=== PATIENT | female | born 1955 | race Caucasian/White ===

== ENCOUNTER 2017-08-31 14:53 | Outpatient (CLI) | payer BC | END 2017-08-31 14:54 | disposition home or self-care (01) | LOC: BICRAD 14:53 | PROVIDERS: ATTEND Internal Medicine | DX: R19.00 Intra-abdominal and pelvic swelling, mass and lump, unspecified site (principal) | CPT/HCPCS: 74018 ==

== ENCOUNTER 2022-01-12 10:40 | Outpatient (CLI) | payer BC | END 2022-01-12 10:41 | disposition home or self-care (01) | LOC: BICMAMMO 10:40 | PROVIDERS: ATTEND Internal Medicine | DX: Z12.31 Encounter for screening mammogram for malignant neoplasm of breast (principal); M85.852 Other specified disorders of bone density and structure, left thigh; M81.0 Age-related osteoporosis without current pathological fracture; Z98.890 Other specified postprocedural states; Z91.89 Other specified personal risk factors, not elsewhere classified; Z80.3 Family history of malignant neoplasm of breast | CPT/HCPCS: 77063; 77067; 77080 ==

== ENCOUNTER 2022-06-07 08:08 | Outpatient (CLI) | payer BC | END 2022-06-07 08:09 | disposition home or self-care (01) | LOC: BICMAMMO 08:08 | PROVIDERS: ATTEND Internal Medicine | DX: N64.4 Mastodynia (principal) | CPT/HCPCS: G0279 ==

== ENCOUNTER 2023-01-17 11:02 | Inpatient (IN) | payer MEDICARE, BC ==
[~2023-01-17 11:02] MED LIST: Iopamidol-370 76% 500 ML MDV (1 ML CHARGE) ONE
[2023-01-17 12:39] LABS: #Basophils 0.1 thou/uL (0.0-0.2); #Eosinphils 0.1 thou/uL (0.0-0.7); #Monocytes 0.7 thou/uL (0.11-0.59); #Neutrophils 3.2 thou/uL (1.40-6.50); %Basophils 0.8 % (0.0-1.0); %Eosinophils 2.3 % (0.0-10.0); %Lymphocytes 32.7 % (21.0-51.0); %Monocytes 10.9 % (0.0-10.0); Hematocrit 43.1 % (36.0-47.0); Hemoglobin 14.5 g/dL (12.0-16.0); Mean Corpuscular HGB CONC 33.6 g/dL (32.0-36.0); Mean Corpuscular Hemoglobin 31.2 pg (27.0-31.0); Mean Corpuscular Volume 92.7 fl (78.0-98.0); Mean Platelet Volume 10.3 fL (7.4-10.4); Platelet Count 241 10x3/uL (130-400); RBC Distribution Width 13.3 % (11.5-14.5); Red Blood Cell (RBC) Count 4.65 mill/uL (4.20-5.40); White Blood Cell (WBC) Count 6.1 10x3/uL (4.8-10.8)
[2023-01-17 12:52] LABS: Prothrombin Time 13.4 sec (12.0-14.7)
[2023-01-17 12:53] LABS: PTT 27.1 sec (22.9-36.1)
[2023-01-17 13:09] LABS: Acetaminophen Less than 10 mcg/mL (10.0-30.0); Alcohol Less than 10.0 mg/dL (Less than 10); Salicylate Less than 8.0 mg/dL (15.0-30.0)
[2023-01-17 13:14] LABS: ALT (SGPT) 17 U/L (8-55); AST (SGOT) 19 U/L (5-34); Albumin 4.7 g/dL (3.4-4.8); Alkaline Phosphatase 62 U/L (40-110); Anion Gap 13 mmol/L (10-20); BUN (Urea Nitrogen) 16 mg/dL (9.8-20.1); Bilirubin, Total Less than 1.0 mg/dL (0.2-1.2); Calc. Creatinine Clearance 0 mL/min (70-130); Calcium 10.3 mg/dL (7.8-10.44); Carbon Dioxide 29 mmol/L (23-31); Chloride 101 mmol/L (98-107); Estimated GFR 63; Globulin 2.9 g/dL (2.4-3.5); Glucose 97 mg/dL (80-115); Potassium 3.8 mmol/L (3.5-5.1); Protein, Total 7.6 g/dL (5.8-8.1); Sodium 139 mmol/L (136-145)
[2023-01-17] MEDS ORDERED: Aspirin Chewable 81 MG TAB ONE ×2 (13:56→13:58)
[2023-01-17 15:11] LABS: Bacteria/HPF None Seen HPF (None Seen); Bilirubin Negative (Negative); Blood, Urine 1+ (Negative); CAUTI Indications for Culture Alt mental st,lethar; Clarity Clear (Clear); Glucose, Urine (Dipstick) Normal (Negative); Ketone, Urine Trace mg/dL (Negative); Leukocyte Negative Leu/uL (Negative); Nitrite Negative (Negative); Protein, Urine (Dipstick) Negative (Neg-Trace); RBC/HPF 0-3 HPF (0-3); Specific Gravity, Urine 1.031 (1.002-1.036); Urobilinogen Normal mg/dL (Less than 2); WBC/HPF 0-3 HPF (0-3); pH, Urine 6.5 (5.0-9.0)
[2023-01-17 15:13] LABS: Urine Culture Reflex No No
[2023-01-17 15:18] LABS: Amphetamine Not Detected (NotDetected); Barbiturates Screen Not Detected (NotDetected); Benzodiazepine Screen Not Detected (NotDetected); Cocaine Metabolite Screen Not Detected (NotDetected); Methadone Not Detected (NotDetected); Methamphetamine Not Detected (NotDetected); Opiate Screen Not Detected (NotDetected); Oxycodone Screen Not Detected (NotDetected); Phencyclidine (PCP) Not Detected (NotDetected); THC/Cannabinoid Screen Not Detected (NotDetected); Tricyclic Screen Not Detected (NotDetected)
[2023-01-17 15:30] LABS: SARS-CoV-2 NAA Rapid Test Not Detected (NotDetected)
[2023-01-17] MEDS ORDERED: Acetaminophen 325 MG TAB PO PRN (15:35)
[2023-01-17] MEDS ORDERED: Calcium Carbonate 500 MG ChewTAB PO PRN (15:35)
[2023-01-17] MEDS ORDERED: Senokot S 8.6-50 MG TAB PO PRN (15:35)
[2023-01-17] MEDS ORDERED: Acetaminophen 650 MG Suppository PR PRN (15:35)
[2023-01-17] MEDS ORDERED: Ondansetron PF 4 MG/2 ML Vial IVP PRN (15:35)
[2023-01-17] MEDS ORDERED: Bisacodyl 5 MG TAB PO PRN (15:35)
[2023-01-17] MEDS ORDERED: hydrALAZINE 20 MG/ML VIAL SLOW IVP PRN (15:35)
[2023-01-17] MEDS: Sodium Chloride 0.9% 1,000 ML IV SCH (16:29)
[2023-01-17] MEDS ORDERED: Lorazepam 1 MG TAB PO PRN (17:26)
[2023-01-17] MEDS ORDERED: Electrolyte Replacement Protocol FS SCH (17:30)
[2023-01-17 18:27] LABS: Bilirubin, Direct 0.3 mg/dL (0.1-0.3); Magnesium 2.1 mg/dL (1.6-2.6); Phosphorus 3.2 mg/dL (2.3-4.7)
[2023-01-17 18:46] VITALS: BMI 25.9
[2023-01-17] MEDS: Thiamine HCl 200 MG/2 ML VIAL SLOW IVP SCH (18:47)
[2023-01-17 19:15] LABS: Actual Bicarbonate (HCO3v) 22.8 mEq/L (22-28); Base Excess 0.8 mEq/L (-2.0 to +3.0); Calcium, Ionized (venous) 1.05 mmol/L (1.16-1.32); Chloride (VBG) 101 mmol/L (98-106); Hematocrit-VBG 46 % (36.0-47.0); Hemoglobin (Hb) 15.7 g/dL (11.7-16.1); pH (venous) 7.499 (7.32-7.43)
[2023-01-17 19:59] LABS: Troponin I 0.081 ng/mL (< 0.028)
[2023-01-17] MEDS: Famotidine/PF 20 mg/2ml Vial SLOW IVP SCH (22:08)
[2023-01-17] MEDS: Atorvastatin Calcium 40 MG TAB PO SCH (22:08)
[2023-01-18] MEDS: Sodium Chloride 0.9% 1,000 ML IV SCH (03:34)
[2023-01-18 05:16] LABS: #Basophils 0.1 thou/uL (0.0-0.2); #Eosinphils 0.2 thou/uL (0.0-0.7); #Monocytes 0.7 thou/uL (0.11-0.59); #Neutrophils 3.2 thou/uL (1.40-6.50); %Basophils 0.8 % (0.0-1.0); %Eosinophils 2.5 % (0.0-10.0); %Lymphocytes 32.9 % (21.0-51.0); %Monocytes 11.3 % (0.0-10.0); %Neutrophils 52.2 % (42.0-75.0); Hemoglobin 13.3 g/dL (12.0-16.0); Mean Corpuscular HGB CONC 34.1 g/dL (32.0-36.0); Mean Corpuscular Hemoglobin 31.4 pg (27.0-31.0); Mean Platelet Volume 10.2 fL (7.4-10.4); Platelet Count 214 10x3/uL (130-400); RBC Distribution Width 13.2 % (11.5-14.5); Red Blood Cell (RBC) Count 4.24 mill/uL (4.20-5.40)
[2023-01-18 05:23] LABS: Hemoglobin A1c 5.1 % (4.0-6.0)
[2023-01-18 06:05] LABS: ALT (SGPT) 12 U/L (8-55); AST (SGOT) 15 U/L (5-34); Albumin 3.9 g/dL (3.4-4.8); Alkaline Phosphatase 51 U/L (40-110); Anion Gap 10 mmol/L (10-20); BUN (Urea Nitrogen) 12 mg/dL (9.8-20.1); Bilirubin, Total 0.7 mg/dL (0.2-1.2); Calc. Creatinine Clearance 84 mL/min (70-130); Calcium 9.4 mg/dL (7.8-10.44); Carbon Dioxide 28 mmol/L (23-31); Cardiac Risk 3.5 (Less than 4.5); Chloride 105 mmol/L (98-107); Cholesterol 182 mg/dl (< 200 Desired); Estimated GFR 83; Globulin 2.6 g/dL (2.4-3.5); Glucose 95 mg/dL (80-115); HDL Cholesterol 52 mg/dL (>60 Neg Risk); LDL Cholesterol, Calculated 118 mg/dL; Potassium 3.2 mmol/L (3.5-5.1); Protein, Total 6.5 g/dL (5.8-8.1); Sodium 140 mmol/L (136-145); Triglycerides 62 mg/dL (Less than 150)
[2023-01-18] MEDS ORDERED: Potassium Chloride 20 MEQ TAB PO SCH ×2 (08:00→11:30)
[2023-01-18] MEDS: Folic Acid 1 MG TAB PO SCH (08:40)
[2023-01-18] MEDS: Multivit, Therapeutic 1 TAB PO SCH (08:40)
[2023-01-18] MEDS: Carvedilol 3.125 MG TAB PO SCH ×2 (08:41→20:03)
[2023-01-18] MEDS: Famotidine/PF 20 mg/2ml Vial SLOW IVP SCH (08:41)
[2023-01-18] MEDS ORDERED: Non-Formulary Item 1 EACH (Valsartan/Hydrochlorothiazide [Valsartan-Hctz 160-25 Mg Tab] 1 PO SCH (09:00)
[2023-01-18] MEDS ORDERED: Aspirin 81 mg Enteric Coated Tablet PO SCH (09:00)
[2023-01-18 09:09] LABS: Troponin I 0.032 ng/mL (< 0.028)
[2023-01-18] MEDS: Hydrochlorothiazide 25 MG TAB PO SCH (09:32)
[2023-01-18] MEDS: Valsartan 80 MG TAB PO SCH (09:32)
[2023-01-18] MEDS ORDERED: Benzonatate 100 MG CAP PO PRN (11:22)
[2023-01-18] MEDS: Thiamine HCl 200 MG/2 ML VIAL SLOW IVP SCH (19:16)
[2023-01-18] MEDS: Atorvastatin Calcium 40 MG TAB PO SCH (20:03)
[2023-01-18] MEDS: guaiFENesin/Codeine 200 mg/20 mg 10 ml Cup PO PRN (20:03)
[2023-01-18] MEDS: rOPINIRole HCl 0.25 MG TAB PO SCH (21:39)
[2023-01-19] MEDS: GUAIFENESIN SF SOLN 200 MG/10 ML UDCUP PO PRN (03:09)
[2023-01-19] MEDS: Valsartan 80 MG TAB PO SCH (09:30)
[2023-01-19] MEDS: Multivit, Therapeutic 1 TAB PO SCH (09:30)
[2023-01-19] MEDS: Hydrochlorothiazide 25 MG TAB PO SCH (09:31)
[2023-01-19] MEDS: Carvedilol 3.125 MG TAB PO SCH ×2 (09:31→20:46)
[2023-01-19] MEDS: Folic Acid 1 MG TAB PO SCH (09:31)
[2023-01-19] MEDS ORDERED: Non-Formulary Item 1 EACH (Desvenlafaxine [Desvenlafaxine Er] 50 MG Tab.Er.24h) PO SCH (10:31)
[2023-01-19] MEDS: Thiamine HCl 200 MG/2 ML VIAL SLOW IVP SCH (18:54)
[2023-01-19] MEDS: rOPINIRole HCl 0.25 MG TAB PO SCH (20:46)
[2023-01-19] MEDS: Atorvastatin Calcium 40 MG TAB PO SCH (20:46)
[2023-01-19] MEDS: guaiFENesin/Codeine 200 mg/20 mg 10 ml Cup PO PRN (20:46)
[2023-01-20] MEDS: GUAIFENESIN SF SOLN 200 MG/10 ML UDCUP PO PRN (03:11)
[2023-01-20 06:09] LABS: Potassium 3.5 mmol/L (3.5-5.1)
[2023-01-20] MEDS ORDERED: Potassium Chloride 20 MEQ TAB PO SCH (08:00)
[2023-01-20] MEDS: Valsartan 80 MG TAB PO SCH (08:29)
[2023-01-20] MEDS: Hydrochlorothiazide 25 MG TAB PO SCH (08:29)
[2023-01-20] MEDS: Carvedilol 3.125 MG TAB PO SCH ×2 (08:30→20:45)
[2023-01-20] MEDS: Multivit, Therapeutic 1 TAB PO SCH (08:30)
[2023-01-20] MEDS: Folic Acid 1 MG TAB PO SCH (08:30)
[2023-01-20] MEDS: Venlafaxine HCl XR 75 MG CAP PO SCH (08:39)
[2023-01-20] MEDS ORDERED: ALPRAZolam 0.25 MG TAB PO SCH (15:45)
[2023-01-20] MEDS ORDERED: Melatonin 3 MG TAB PO PRN (17:35)
[2023-01-20] MEDS ORDERED: ALPRAZolam 0.25 MG TAB PO PRN (17:35)
[2023-01-20] MEDS ORDERED: Thiamine 100 MG TAB PO SCH (18:00)
[2023-01-20] MEDS: Atorvastatin Calcium 40 MG TAB PO SCH (20:45)
[2023-01-20] MEDS: rOPINIRole HCl 0.25 MG TAB PO SCH (20:45)
[2023-01-21] MEDS: GUAIFENESIN SF SOLN 200 MG/10 ML UDCUP PO PRN (04:05)
[2023-01-21 08:03] VITALS: BP 131/67; TEMP 98.9
[2023-01-21] MEDS: Valsartan 80 MG TAB PO SCH (08:44)
[2023-01-21] MEDS: Carvedilol 3.125 MG TAB PO SCH (08:44)
[2023-01-21] MEDS: Multivit, Therapeutic 1 TAB PO SCH (08:44)
[2023-01-21] MEDS: Hydrochlorothiazide 25 MG TAB PO SCH (08:45)
[2023-01-21] MEDS: Folic Acid 1 MG TAB PO SCH (08:45)
[2023-01-21] MEDS: Venlafaxine HCl XR 75 MG CAP PO SCH (08:45)
== END 2023-01-21 09:40 | disposition home or self-care (01) | DRG 64 ==
LOC: SUATTDRO 11:02 → ERS 11:02 → ERHOLD 15:39 → 2SE 18:28 → OBSVTOIN 01-18 10:50
PROVIDERS: ADMIT Internal Medicine; ATTEND Internal Medicine
PROC: 4A043R1 Measurement of Venous Saturation, Peripheral, Percutaneous Approach (ICD-10-PCS; 2023-01-17)
PROC: 4A00X4Z Measurement of Central Nervous Electrical Activity, External Approach (ICD-10-PCS; principal; 2023-01-19)
DX: I62.00 Nontraumatic subdural hemorrhage, unspecified (principal); G93.41 Metabolic encephalopathy; I63.89 Other cerebral infarction; F32.A Depression, unspecified; I10 Essential (primary) hypertension; R77.8 Other specified abnormalities of plasma proteins; F10.10 Alcohol abuse, uncomplicated; I37.1 Nonrheumatic pulmonary valve insufficiency; Z20.822 Contact with and (suspected) exposure to COVID-19; Z79.899 Other long term (current) drug therapy; Z71.41 Alcohol abuse counseling and surveillance of alcoholic; Z90.710 Acquired absence of both cervix and uterus; Z90.722 Acquired absence of ovaries, bilateral; Z98.890 Other specified postprocedural states; R29.702 NIHSS score 2; J45.909 Unspecified asthma, uncomplicated
CPT/HCPCS: 36415; 36416; 70450; 70496; 70498; 70551; 71045; 80053; 80061; 80306; 80307; 81001; 82140; 82248; 82805; 83036; 83735; 84100; 84132; 84443; 84484; 85025; 85610; 85730; 93005; 93010; 93306; 95711; 95819; 95957; 96374; 96375; G0378; J1650; J3411; J7050; Q9967; S0028; U0002

== ENCOUNTER 2023-02-21 11:57 | Outpatient (CLI) | payer MEDICARE, BC | END 2023-02-21 11:58 | disposition home or self-care (01) | LOC: BICMAMMO 11:57 | PROVIDERS: ATTEND Internal Medicine | DX: Z12.31 Encounter for screening mammogram for malignant neoplasm of breast (principal); Z80.3 Family history of malignant neoplasm of breast; Z91.89 Other specified personal risk factors, not elsewhere classified | CPT/HCPCS: 77063; 77067 ==